=== PATIENT | male | born 1980 | race Caucasian/White ===

== ENCOUNTER → 2024-10-10 | Outpatient (CLI) | payer MEDICARE, MEDICAID, SELFPAY ==
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
== END | disposition home or self-care (01) ==
PROVIDERS: PCP Family Medicine; Referring Provider Family Medicine; Visit Provider Family Medicine
DX: N13.30 Unspecified hydronephrosis (principal); G95.29 Other cord compression; K83.8 Other specified diseases of biliary tract
CPT/HCPCS: 71270; 72110; 74178; A4649; Q9967

== ENCOUNTER → 2024-11-03 | Outpatient (CLI) | payer MEDICARE, MEDICAID, SELFPAY ==
--- NOTE | 2024-11-03 11:47 | XR_ITS ---
Examination: Abdomen sonogram, complete Date and time of exam: November 03, 2024 1153 hours INDICATIONS: Right upper abdominal pain beginning one year ago. Technique: Multiple real-time grayscale transabdominal sonographic images of the abdomen have been obtained. Findings: No bladder sludge Distended gallbladder Gallbladder wall 0.25 cm no edema Enlarged common bile duct 15 mm Pancreatic head 1.9 cm Aorta obscured by bowel gas Liver 13.8 cm fatty infiltration Normal hepatopedal portal venous flow Patent IVC Right kidney 9.0 cm renal cortex 1.5 cm Moderate to advanced right hydronephrosis Left kidney 9.3 cm cortex 1.9 cm Mild left hydronephrosis Spleen 10.1 cm IMPRESSION: Distended gallbladder Enlarged common bile duct 1.5 cm Consider HIDA scan follow-up to assess for common bile duct stricture and/or stones Moderate to advanced right hydronephrosis Mild left hydronephrosis
[2024-11-03 14:25] LABS: Basophils # (Auto) 0.0 Thou/mm3 (0.0-0.2); Basophils % (Auto) 1 % (0-2.5); Eosinophils # (Auto) 0.1 Thou/mm3 (0.0-0.5); Eosinophils % (Auto) 2 % (0-10); Hematocrit 28.2 % (41.0-53.0); Hemoglobin 9.2 g/dL (13.5-16.0); Immature Granulocytes Auto 0.01 Thou/mm3 (0.00-0.00); Lymphocytes # (Auto) 1.0 Thou/mm3 (1.0-4.8); Lymphocytes % (Auto) 26 % (10-50); Mean Corpuscular HGB Conc 32.6 g/dl (31.0-37.0); Mean Corpuscular Hemoglobin 31.0 pg (25.0-35.0); Mean Corpuscular Volume 95 fL (80-100); Monocytes # (Auto) 0.2 Thou/mm3 (0.0-0.8); Monocytes % (Auto) 4 % (0-12); Neutrophils # (Auto) 2.7 Thou/mm3 (1.8-7.7); Neutrophils % (Auto) 67 % (37-80); Nucleated Red Blood Cell # 0.00 Thou/mm3 (0.00-0.00); Nucleated Red Blood Cell % 0 /100 WBC (0); Platelet Count 143 Thou/mm3 (140-440); RDW Standard Deviation 49.8 fL (35.1-43.9); Red Blood Count 2.97 Miln/mm3 (4.50-5.90); White Blood Count 4.0 Thou/mm3 (3.8-10.6)
[2024-11-03 14:35] LABS: B-Type Natriuretic Peptide 177 pg/mL (0-100)
[2024-11-03 14:40] LABS: Alanine Aminotransferase 27 U/L (10-49); Albumin, Serum 4.2 gm/dL (3.5-5.0); Alkaline Phosphatase 111 U/L (46-116); Aspartate Amino Transferase 38 U/L (0-34); Bilirubin,Direct < 0.1 mg/dL (0.0-0.3); Bilirubin,Total 0.2 mg/dL (0.3-1.2); Cardiac Risk Estimate 2.1 RATIO (4.0-6.7); Cholesterol 109 mg/dL (132-200); HDL Cholesterol 51 mg/dL (40-60); LDL Cholesterol,Calculated 45 mg/dL (0-130); Total Protein 6.8 gm/dL (5.7-8.2); Triglycerides 67 mg/dL (30-150)
== END | disposition home or self-care (01) ==
LOC: CDIM 11:17 → COPL 12:26
PROVIDERS: PCP Family Medicine; Referring Provider Internal Medicine Cardiovascular Disease; Visit Provider Radiology Diagnostic Radiology
DX: K82.8 Other specified diseases of gallbladder (principal); N13.30 Unspecified hydronephrosis; K83.8 Other specified diseases of biliary tract; I11.0 Hypertensive heart disease with heart failure; I50.9 Heart failure, unspecified; E78.5 Hyperlipidemia, unspecified
CPT/HCPCS: 36415; 76700; 80061; 80076; 83880; 85025

== ENCOUNTER → 2025-01-01 | Outpatient (CLI) | payer MEDICARE, MEDICAID, SELFPAY ==
[2025-01-01 12:58] LABS: Prostate Specific Antigen 0.31 ng/mL (0-4.00)
== END | disposition home or self-care (01) ==
PROVIDERS: PCP Family Medicine; Referring Provider Urology; Visit Provider Urology
DX: R97.20 Elevated prostate specific antigen [PSA] (principal)
CPT/HCPCS: 36415; 84153

== ENCOUNTER → 2025-01-01 | Outpatient (BNVA) | payer MEDICARE, MEDICAID, SELFPAY | END | disposition home or self-care (01) | PROVIDERS: PCP Family Medicine; Referring Provider Family Medicine; Visit Provider Urology | DX: N40.1 Benign prostatic hyperplasia with lower urinary tract symptoms (principal); N13.8 Other obstructive and reflux uropathy; N13.2 Hydronephrosis with renal and ureteral calculous obstruction; I25.10 Atherosclerotic heart disease of native coronary artery without angina pectoris; I11.0 Hypertensive heart disease with heart failure; I50.9 Heart failure, unspecified; E78.5 Hyperlipidemia, unspecified; K59.09 Other constipation | CPT/HCPCS: 81003; 99213; G0463 ==

== ENCOUNTER → 2025-01-25 | Outpatient (BNVA) | payer MEDICARE, MEDICAID, SELFPAY | END | disposition home or self-care (01) | PROVIDERS: PCP Family Medicine; Referring Provider Family Medicine; Visit Provider Urology | DX: N40.1 Benign prostatic hyperplasia with lower urinary tract symptoms (principal); R39.12 Poor urinary stream | CPT/HCPCS: 51741; 51798 ==

== ENCOUNTER → 2025-02-15 | Outpatient (CLI) | payer MEDICARE, MEDICAID, SELFPAY ==
--- NOTE | 2025-02-15 15:00 | XR_ITS ---
Examination: CT abdomen and pelvis without contrast. Coronal 3-D reconstructions. Sagittal 2-D reconstructions. Date and time of exam: February 15, 2025, 1508 hours INDICATIONS: Flank pain 3 months, history kidney stones CTDI: vol (mGy): 6.05 DLP: (mGycm): 321 Technique: Axial images of the abdomen have been obtained, 3 mm slice thickness Intravenous contrast material has not been administered. Low dose protocols were performed. One or more of the following dose reduction techniques were used; automated exposure control, adjustment of the mA and/or KV according to patient size, use of iterative reconstruction technique. Findings: 4 mm right lobe liver cyst No gallstones Spleen is not enlarged No pancreatic mass Moderate bilateral hydronephrosis 8 mm left renal calculus Moderate right moderate to advanced left hydronephrosis No definite ureteral calculi Bladder intact no bladder calculi Severe kyphosis of the spine secondary to wedging, chronic L3 L2 IMPRESSION: Moderate right moderate to advanced left hydronephrosis, repeating the study with intravenous contrast would be helpful
== END | disposition home or self-care (01) ==
PROVIDERS: PCP Family Medicine; Referring Provider Urology; Visit Provider Urology
DX: N13.30 Unspecified hydronephrosis (principal)
CPT/HCPCS: 74176

== ENCOUNTER → 2025-04-10 | Outpatient (BNVA) | payer MEDICARE, MEDICAID, SELFPAY | END | disposition home or self-care (01) | PROVIDERS: PCP Family Medicine; Referring Provider Family Medicine; Visit Provider Urology | DX: N40.1 Benign prostatic hyperplasia with lower urinary tract symptoms (principal); N13.8 Other obstructive and reflux uropathy; N31.9 Neuromuscular dysfunction of bladder, unspecified; R39.198 Other difficulties with micturition | CPT/HCPCS: 76872 ==